=== PATIENT | male | born 1970 | race American Indian/Alaskan Native ===

== ENCOUNTER 2018-05-05 10:42 | Emergency (ER) | payer SELFPAY ==
[2018-05-05 11:03] VITALS: BP 155/105
[2018-05-05] MEDS ORDERED: XYLOCAINE 1% 20 mL INFILTRATI ONE (11:27)
--- NOTE | 2018-05-05 11:35 | Emergency Department Report ---
Abscess Boil HPI - HPI Chief Complaint: Skin/Abscess/Foreign Body Stated Complaint: BOIL ON BACK/PAIN Time Seen by Provider: 05/05/18 11:23 Duration: 3 Days Location: Neck Severity: Mild History: Yes Pain, No Fever, No Purulent Drainage, No Numbness, No Foreign Body, No Previous History, No Insect Bite HPI: This is a 48-year-old male nontoxic, well nourished in appearance, no acute signs of distress presents to the ED with c/o of abscess to the left neck area. Patient denies any pus or drainage. Based denies trauma. Patient denies any fe otilio, chills, nausea, vomiting, headache, stiff neck, numbness or tingling. Patient denies any allergies significant past medical history. Home Medications: Previous Rx's Medication Instructions Recorded Last Taken Type Bacitracin [Bacitracin Ophth] 1 applicatio OP BID #1 tube 02/12/16 Unknown Rx HYDROcodone/APAP 5-325 [Ilion 1 each PO Q6HR PRN #15 tablet 02/12/16 Unknown Rx 5/325] Ibuprofen [Motrin] 800 mg PO Q8HR PRN #30 tablet 02/12/16 Unknown Rx cephALEXin [Keflex] 500 mg PO Q12HR #10 cap 07/28/16 Unknown Rx traMADol [Ultram 50 MG tab] 50 mg PO Q6HR PRN #15 tablet 07/28/16 Unknown Rx Acetaminophen/Codeine [Tylenol 1 tab PO Q6H PRN #12 tab 05/05/18 Unknown Rx /Codeine # 3 tab] Sulfamethoxazole/Trimethoprim 1 each PO BID #14 tablet 05/05/18 Unknown Rx [Bactrim DS TAB] Allergies/Adverse Reactions: Allergies Allergy/AdvReac Type Severity Reaction Status Date / Time No Known Allergies Allergy Verified 10/28/13 13:49 ED Review of Systems ROS: Stated complaint: BOIL ON BACK/PAIN Other details as noted in HPI Constitutional: denies: chills, fever Eyes: denies: eye pain, eye discharge, vision change ENT: denies: ear pain, throat pain Respiratory: denies: cough, shortness of breath, wheezing Cardiovascular: denies: chest pain, palpitations Endocrine: no symptoms reported Gastrointestinal: denies: abdominal pain, nausea, diarrhea Genitourinary: denies: urgency, dysuria Musculoskeletal: denies: back pain, joint swelling, arthralgia Skin: denies: rash, lesions Neurological: denies: headache, weakness, paresthesias Psychiatric: denies: anxiety, depression Hematological/Lymphatic: denies: easy bleeding, easy bruising ED Past Medical Hx - Past Medical History Additional medical history: Diverticulosis - Surgical History Past Surgical History?: No - Social History Smoking Status: Never Smoker Substance Use Type: Alcohol, Marijuana - Medications Home Medications: Home Medications Medication Instructions Recorded Confirmed Last Taken Type Bacitracin [Bacitracin Ophth] 1 applicatio OP BID #1 tube 02/12/16 Unknown Rx HYDROcodone/APAP 5-325 [Ilion 1 each PO Q6HR PRN #15 tablet 02/12/16 Unknown Rx 5/325] Ibuprofen [Motrin] 800 mg PO Q8HR PRN #30 tablet 02/12/16 Unknown Rx cephALEXin [Keflex] 500 mg PO Q12HR #10 cap 07/28/16 Unknown Rx traMADol [Ultram 50 MG tab] 50 mg PO Q6HR PRN #15 tablet 07/28/16 Unknown Rx Acetaminophen/Codeine [Tylenol 1 tab PO Q6H PRN #12 tab 05/05/18 Unknown Rx /Codeine # 3 tab] Sulfamethoxazole/Trimethoprim 1 each PO BID #14 tablet 05/05/18 Unknown Rx [Bactrim DS TAB] ED Abscess Boil Physical Exam - Exam General: Vital signs noted. No distress. Alert and acting appropriately. Front/Back of Body, Lg (Color): 1 - abscess here Size: 3 cm Exam: Yes Tenderness, Yes Fluctuance, Yes Normal Neurologic Exam, Yes Normal Circulation, No Surrounding Cellulites/Erythema, No Lymphangitis, No C repitation, No Heart Murmur I & D Note - I & D Note I & D Note: Under sterile field, I used Betadine to cleanse the area. I then used 1% lidocaine plain with 25-gauge 5/8 needle to inject area for anesthetic purposes. Total volume injected 3 mL. I then used an 11 blade to make a 1 cm incision. About 2 mL's of purulent drainage has been noted. I then used a hemostat to break the abscess formation. I then used sterile 0.9% normal saline flush to flush the wound with total volume of 40 mL used. I then put a 1/4 iodoform packing to the incision. A sterile 4 x 4 with tape has been applied as dressing. Bleeding is under control. Patient tolerated the procedure well with no signs of distress noted. ED Course Vital Signs 05/05/18 10:59 Temperature 98.5 F Pulse Rate 79 Respiratory 18 Rate Blood Pressure 155/105 O2 Sat by Pulse 99 Oximetry - Reevaluation(s) Reevaluation #1: 05/05/18 11:48 Patient is speaking in full sentences with no signs of distress noted. Critical care attestation.: If time is entered above; I have spent that time in minutes in the direct care of this critically ill patient, excluding procedure time. ED Medical Decision Making - Medical Decision Making This is a 48-year-old male that presents with abscess. Patient is stable and was examined by me. This is incision and drainage and has been performed and patient tolerated well. A sterile dressing has been applied. Patient was educated on proper wound care. Patient is discharged with Bactrim and Tylenol with codeine and was instructed not to operate any machinery while taking Tylenol with codeine due to drowsiness. Patient was instructed to return in 2 days for packing removal. Patient was instructed to refer to Follow-up with a primary care doctor in 3-5 days or if symptoms worsen and continue return to emergency room as soon as possible. At time of discharge, the patient does not seem toxic or ill in appearance. No acute signs of distress noted. Patient agrees to discharge treatment plan of care. No further questions noted by the patient. ED Disposition Clinical Impression: Abscess, Encounter for incision and drainage procedure Disposition: DC-01 TO HOME OR SELFCARE Is pt being admited?: No Does the pt Need Aspirin: No Condition: Stable Instructions: Abscess (ED), Abscess Incision and Drainage (ED), Acetaminophen/Codeine (By mouth) Additional Instructions: Follow-up with a primary care doctor in 3-5 days or if symptoms worsen and co ntinue return to emergency room as soon as possible. Do not operate any machinery while taking Tylenol with codeine as this may cause drowsiness. Prescriptions: Acetaminophen/Codeine [Tylenol /Codeine # 3 tab] 1 tab PO Q6H PRN #12 tab PRN Reason: pain Sulfamethoxazole/Trimethoprim [Bactrim DS TAB] 1 each PO BID #14 tablet Referrals: RACHEL SÁNCHEZ MD [Primary Care Provider] - 3-5 Days PRIMARY CARE, [Referring] - 3-5 Days AMOR PATTERSON MD [Staff Physician] - 3-5 Days [facility] [Outside] - 3-5 Days [facility] [Outside] - 3-5 Days Forms: Work/School Release Form(ED)
== END 2018-05-05 12:03 | disposition home or self-care (01) ==
LOC: ED 10:42 → MERGE 10:42 → ED 12:03
DX: L02.11 Cutaneous abscess of neck (principal); F12.10 Cannabis abuse, uncomplicated
CPT/HCPCS: 99282

== ENCOUNTER 2018-05-07 09:22 | Emergency (ER) | payer SELFPAY ==
--- NOTE | 2018-05-07 11:07 | Emergency Department Report ---
Chief Complaint: Skin/Abscess/Foreign Body Stated Complaint: NECK BUMP Time Seen by Provider: 05/07/18 10:22 - HPI History of Present Illness: 48-year-old male presents to ED for wound check and packing removal. Patient states he was seen on Thursday for incision and drainage of an abscess on the left posterior neck. Patient also states that he is unable to sleep at night and states that he may be anxious - ROS Review of Systems: Reviewed Denies all other systems - Exam Vital Signs: Vital Signs 05/07/18 09:46 Temperature 98.4 F Pulse Rate 96 H Respiratory 18 Rate Blood Pressure 138/93 O2 Sat by Pulse 98 Oximetry Physical Exam: NECK: Draining Abscess on upper neck close to the scalp. No bleeding. No packing found. Pack and must have fallen out MSE screening note: Focused history and physical exam performed. Due to findings the following was ordered: ED Medical Decision Making - Medical Decision Making Wound was cleaned, dressing placed. F/u with PCP ED Disposition for MSE Clinical Impression: Wound check, abscess, Insomnia Disposition: TO HOME OR SELFCARE Is pt being admited?: No Does the pt Need Aspirin: No Condition: Stable Instructions: Insomnia (ED), Acute Wound Care (ED) Additional Instructions: Make sure to follow up with the primary care physician as discussed. Take all your medications as you've been prescribed. If you have any worsening symptoms or develop new symptoms please return to ED immediately. Prescriptions: Cyclobenzaprine [Flexeril] 10 mg PO QHS #20 tablet Referrals: AMOR WHITFIELD MD [Primary Care Provider] - 3-5 Days Forms: Work/School Release Form(ED) Time of Disposition: 11:11
== END 2018-05-07 11:27 | disposition home or self-care (01) ==
LOC: ED 09:22